=== PATIENT | female | born 1990 | race Caucasian/White ===

== ENCOUNTER 2016-07-31 15:37 | Inpatient (IN) | payer MEDICAID, OTHER ==
[~2016-07-31] VITALS: Ht 167.6 cm; Wt 122.0 kg
[2016-07-31 16:33] LABS: Basophils # (auto) 0.1 uL; Basophils % (auto) 0.4 % (0.0-2.0); Eosinophils # (auto) 0.7 uL; Eosinophils % (auto) 5.3 % (0.0-7.0); Hematocrit 42.6 % (36.0-46.0); Hemoglobin 13.8 g/dL (12.2-16.2); Lymphocytes # (auto) 4.4 uL; Lymphocytes % (auto) 34.8 % (10.0-50.0); Mean Corpuscular Hemoglobin 29.5 pg (28.0-32.0); Mean Corpuscular Hgb Conc. 32.5 g/dL (32.0-36.0); Mean Corpuscular Volume 90.6 fL (80.0-100.0); Mean Platelet Volume 8.4 fL (7.4-10.4); Monocytes # (auto) 0.6 uL; Neutrophils # (auto) 6.9 uL; Neutrophils % (auto) 54.5 % (37.0-80.0); Platelet Count (auto) 385 10^3/uL (140-450); Red Cell Distribution Width 14.9 % (11.6-16.0); White Blood Cell 12.7 10^3/uL (4.4-10.8)
[2016-07-31 16:40] LABS: Albumin 3.2 g/dL (3.4-5.0); BUN/Creatinine Ratio 13.3; Calcium 8.6 mg/dL (8.5-10.1); Potassium 3.9 mmol/L (3.5-5.1)
[2016-07-31 16:43] LABS: Bilirubin, Total 0.1 mg/dL (0.2-1.0); Total Protein 7.6 g/dL (6.4-8.2)
[2016-07-31] MEDS ORDERED: SODIUM CHLORIDE 0.9% 1,000 ML IVB ONE (17:17)
[2016-07-31] MEDS ORDERED: LORazepam 2MG/ML-1ML VIAL IV ONE ×3 (17:30→21:30)
[2016-07-31] MEDS ORDERED: LORazepam 2MG/ML-1ML VIAL ONE ×2 (19:23→21:08)
[2016-07-31] MEDS ORDERED: LEVETIRACETAM 500 MG/5ML INJ IV ONE (19:51)
[2016-07-31] MEDS ORDERED: LEVETIRACETAM INJ 1,000 MG in SODIUM CHL 0.9% 100 ML IV ONE (20:00)
[2016-07-31] MEDS ORDERED: HYDROmorphone HCL 2 MG/ML VL IV ONE (20:00)
[2016-07-31] MEDS ORDERED: ONDANSETRON HCL 4 MG/2 ML VIAL IV ONE (20:00)
[2016-07-31] MEDS ORDERED: diphenhdrAMINE HCL 50 MG/1 ML VL IV ONE (20:15)
[2016-07-31 20:45] LABS: Urine Bilirubin Negative (Negative); Urine Blood Negative /uL (Negative); Urine Color Yellow (Yellow); Urine Glucose Normal (Normal); Urine Ketone Negative (Negative); Urine Mucus FEW (None Seen); Urine Nitrite Negative (Negative); Urine RBC 2 /hpf (0 - 4); Urine Squamous Epithelial Cell FEW /hpf (<5); Urine Urobilinogen Normal (Negative)
[2016-07-31] MEDS ORDERED: ONDANSETRON HCL 4 MG/2 ML VIAL IV PRN (21:30)
[2016-07-31] MEDS ORDERED: cefTRIAXone 1GM/50ML D5W 50 ML IV ONE (21:30)
[2016-07-31] MEDS ORDERED: ACETAMINOPHEN 325 MG TAB PO PRN (21:30)
[2016-07-31] MEDS ORDERED: NITROGLYCERIN 0.4 MG SL TAB SL PRN (21:30)
[2016-07-31] MEDS ORDERED: HYDROcodone-ACET 5/325MG TAB PO PRN (21:30)
[2016-07-31] MEDS ORDERED: MORPHINE SULF INJ 2 MG/ML SYRINGE 1ML IV PRN (21:30)
[2016-07-31] MEDS ORDERED: PHENYTOIN IV DILANTIN 1,000 MG in SODIUM CHL 0.9% 250 ML IV ONE (21:45)
[2016-07-31 22:40] VITALS: BP 136/80
[2016-07-31] MEDS: LORazepam 2MG/ML-1ML VIAL IV PRN (22:59)
[2016-07-31] MEDS: SODIUM CHLORIDE 0.9% 1,000 ML IV SCH (23:09)
[2016-07-31] MEDS: MORPHINE SULF INJ 2 MG/ML SYRINGE 1ML IV PRN (23:10)
[2016-07-31] MEDS ORDERED: PHENYTOIN SODIUM 50 MG/ML 5ML INJ VIAL IV ONE (23:56)
[2016-08-01] MEDS: METOPROLOL TARTRATE 25 MG TAB PO SCH ×3 (00:10→22:00)
[2016-08-01] MEDS: FAMOTIDINE 20 MG TAB PO SCH ×3 (00:10→22:04)
[2016-08-01] MEDS ORDERED: LEVOFLOXACIN 500MG 100 ML IV ONE (00:30)
[2016-08-01] MEDS: LORazepam 2MG/ML-1ML VIAL IV PRN ×8 (04:43→23:28)
[2016-08-01] MEDS: MORPHINE SULF INJ 2 MG/ML SYRINGE 1ML IV PRN ×3 (04:46→12:48)
[2016-08-01 05:36] LABS: Basophils # (auto) 0.1 uL; Basophils % (auto) 0.5 % (0.0-2.0); Eosinophils # (auto) 0.5 uL; Lymphocytes # (auto) 3.5 uL; Lymphocytes % (auto) 20.3 % (10.0-50.0); Mean Corpuscular Hemoglobin 29.7 pg (28.0-32.0); Mean Corpuscular Hgb Conc. 32.4 g/dL (32.0-36.0); Mean Corpuscular Volume 91.6 fL (80.0-100.0); Mean Platelet Volume 8.1 fL (7.4-10.4); Monocytes # (auto) 0.7 uL; Monocytes % (auto) 3.9 % (0.0-12.0); Neutrophils # (auto) 12.6 uL; Neutrophils % (auto) 72.3 % (37.0-80.0); Platelet Count (auto) 343 10^3/uL (140-450); Red Cell Distribution Width 14.8 % (11.6-16.0); White Blood Cell 17.5 10^3/uL (4.4-10.8)
[2016-08-01 05:45] LABS: Albumin 2.9 g/dL (3.4-5.0); BUN/Creatinine Ratio 14.1; Bilirubin, Total 0.2 mg/dL (0.2-1.0); Calcium 8.3 mg/dL (8.5-10.1); Potassium 4.2 mmol/L (3.5-5.1)
[2016-08-01 05:55] VITALS: BP 128/73
[2016-08-01 09:00] VITALS: BP 137/89
[2016-08-01] MEDS ORDERED: cefTRIAXone 1GM/50ML D5W 50 ML IV SCH (09:00)
[2016-08-01] MEDS ORDERED: PHENYTOIN IV DILANTIN 300 MG in SODIUM CHL 0.9% 50 ML IV SCH (10:00)
[2016-08-01] MEDS: SODIUM CHLORIDE 0.9% 1,000 ML IV SCH ×2 (11:40→22:27)
[2016-08-01 12:49] VITALS: BP 124/72
[2016-08-01] MEDS ORDERED: LORazepam 2MG/ML-1ML VIAL IV STA (15:10)
[2016-08-01] MEDS ORDERED: KETOROLAC TROMETH 30 MG/ML 1ML VIAL IV PRN (16:15)
[2016-08-01] MEDS ORDERED: LORazepam 2MG/ML-1ML VIAL IV PRN ×2 (19:45)
[2016-08-01] MEDS ORDERED: LORazepam 2MG/ML-1ML VIAL ONE (20:38)
[2016-08-01] MEDS ORDERED: LORazepam 2MG/ML-1ML VIAL IV ONE (20:45)
[2016-08-01 22:00] VITALS: BP 131/60
[2016-08-01] MEDS ORDERED: LEVETIRACETAM 500 MG TAB PO SCH (22:00)
[2016-08-01] MEDS ORDERED: VALPROATE INJ 1,000 MG in SODIUM CHL 0.9% 100 ML IV SCH (22:00)
[2016-08-01] MEDS: LEVOFLOXACIN 500MG 100 ML IV SCH (22:04)
[2016-08-02] MEDS: MORPHINE SULF INJ 2 MG/ML SYRINGE 1ML IV PRN ×3 (03:26→23:52)
[2016-08-02] MEDS: LORazepam 2MG/ML-1ML VIAL IV PRN ×7 (04:42→21:16)
[2016-08-02 05:39] VITALS: BP 124/71
[2016-08-02] MEDS: ACCU-CHEK COMFORT CURVE STRIP VI SCH ×5 (06:09→23:58)
[2016-08-02] MEDS ORDERED: InsuLIN REG 1unit/0.01ml Soln (100units/ml) SC SCH (07:00)
[2016-08-02 08:15] VITALS: BP 113/66
[2016-08-02] MEDS: METOPROLOL TARTRATE 25 MG TAB PO SCH ×2 (08:31→21:30)
[2016-08-02] MEDS: FAMOTIDINE 20 MG TAB PO SCH ×2 (08:32→21:29)
[2016-08-02] MEDS: SODIUM CHLORIDE 0.9% 1,000 ML IV SCH ×2 (10:57→23:27)
[2016-08-02 11:16] VITALS: BP 148/75
[2016-08-02 17:00] VITALS: BP 123/66
[2016-08-02] MEDS: PROMETHAZINE HCL 25 MG/ML 1ML IV PRN ×2 (17:32→23:52)
[2016-08-02] MEDS: LEVOFLOXACIN 500MG 100 ML IV SCH (21:30)
[2016-08-02 22:00] VITALS: BP 145/80
[2016-08-03] MEDS: LORazepam 2MG/ML-1ML VIAL IV PRN ×4 (01:10→10:20)
[2016-08-03 05:30] VITALS: BP 118/75
[2016-08-03] MEDS: ACCU-CHEK COMFORT CURVE STRIP VI SCH (05:43)
[2016-08-03] MEDS: MORPHINE SULF INJ 2 MG/ML SYRINGE 1ML IV PRN (09:59)
[2016-08-03] MEDS: PROMETHAZINE HCL 25 MG/ML 1ML IV PRN (10:00)
[2016-08-03] MEDS ORDERED: lamoTRIgine 100 MG TAB PO SCH (10:00)
[2016-08-03] MEDS: FAMOTIDINE 20 MG TAB PO SCH (10:44)
[2016-08-03] MEDS: METOPROLOL TARTRATE 25 MG TAB PO SCH (10:45)
[2016-08-03 12:20] VITALS: BP 114/73
[2016-08-03 12:23] VITALS: BP 142/111
== END 2016-08-03 13:20 | disposition short-term general hospital (02) | DRG 53 ==
LOC: ER 15:42 → EDUNIT# 15:43 → TELE 15:43 → TELE-WESTW 22:55
PROVIDERS: ADMIT Internal Medicine; ATTEND Internal Medicine Pulmonary Disease
DX: G40.401 Other generalized epilepsy and epileptic syndromes, not intractable, with status epilepticus (principal); E44.1 Mild protein-calorie malnutrition; I10 Essential (primary) hypertension; N39.0 Urinary tract infection, site not specified; E66.01 Morbid (severe) obesity due to excess calories; E03.9 Hypothyroidism, unspecified; E11.9 Type 2 diabetes mellitus without complications; R32 Unspecified urinary incontinence; Z98.51 Tubal ligation status; Z82.0 Family history of epilepsy and other diseases of the nervous system; Z68.41 Body mass index [BMI] 40.0-44.9, adult; Z88.0 Allergy status to penicillin; Z91.040 Latex allergy status
CPT/HCPCS: 36415; 70450; 80053; 80185; 81001; 82542; 82962; 83735; 84146; 84702; 85025; 87086; 93005; 94761; 95819; 96365; 96375; 96376; J1885; J1956; J2405

== ENCOUNTER 2016-08-21 18:47 | Emergency (ER) | payer MEDICAID ==
[~2016-08-21] VITALS: Ht 165.1 cm; Wt 127.0 kg
[2016-08-21] MEDS ORDERED: methylPREDNISolone SOD SUCC 125 MG/2 ML VL IM ONE (21:45)
[2016-08-21 22:10] VITALS: BP 126/81
== END 2016-08-21 22:26 | disposition home or self-care (01) ==
LOC: ER 18:54
DX: J02.0 Streptococcal pharyngitis (principal); B95.5 Unspecified streptococcus as the cause of diseases classified elsewhere; E11.9 Type 2 diabetes mellitus without complications; I10 Essential (primary) hypertension; Z88.0 Allergy status to penicillin; Z88.1 Allergy status to other antibiotic agents; Z91.040 Latex allergy status
CPT/HCPCS: 96372; 99283; J2930

== ENCOUNTER 2017-05-18 14:55 | Emergency (ER) | payer MEDICAID ==
[~2017-05-18] VITALS: Ht 157.5 cm; Wt 158.8 kg
[2017-05-18] MEDS ORDERED: LORazepam 2MG/ML-1ML VIAL ONE (14:56)
[2017-05-18] MEDS ORDERED: SODIUM CHLORIDE 0.9% 1,000 ML IV ONE ×2 (15:19)
[2017-05-18 15:29] LABS: Basophils # (auto) 0.1 uL; Eosinophils # (auto) 0.6 uL; Eosinophils % (auto) 5.2 % (0.0-7.0); Hematocrit 41.4 % (36.0-46.0); Hemoglobin 13.9 g/dL (12.2-16.2); Lymphocytes # (auto) 4.1 uL; Mean Corpuscular Hemoglobin 30.6 pg (28.0-32.0); Mean Corpuscular Hgb Conc. 33.5 g/dL (32.0-36.0); Mean Corpuscular Volume 91.4 fL (80.0-100.0); Monocytes # (auto) 0.6 uL; Monocytes % (auto) 5.7 % (0.0-12.0); Neutrophils # (auto) 5.2 uL; Neutrophils % (auto) 49.1 % (37.0-80.0); Nucleated Red Blood Cells % 0.2 %; Platelet Count (auto) 287 10^3/uL (140-450); Red Blood Cells 4.53 10^6/uL (4.0-5.20); Red Cell Distribution Width 14.1 % (11.8-14.3); White Blood Cell 10.5 10^3/uL (4.4-10.8)
[2017-05-18] MEDS ORDERED: LORazepam 2MG/ML-1ML VIAL IV ONE (15:30)
[2017-05-18 15:43] LABS: INR 0.87 (0.9-1.15); Partial Thromboplastin Time 26.8 sec (22.64-33.71); Prothrombin Time 9.5 sec (9.37-12.3)
[2017-05-18 15:49] LABS: Albumin 3.1 g/dL (3.4-5.0); BUN/Creatinine Ratio 15.6; Bilirubin, Total 0.1 mg/dL (0.2-1.0); Calcium 8.3 mg/dL (8.5-10.1); Total Protein 7.6 g/dL (6.4-8.2)
[2017-05-18] MEDS ORDERED: SODIUM CHLORIDE 0.9% 1,000 ML IV SCH ×2 (16:16→22:00)
[2017-05-18] MEDS ORDERED: HYDROcodone-ACET 5/325MG TAB PO PRN (16:30)
[2017-05-18] MEDS ORDERED: MORPHINE SULFATE 10 MG/ML INJ 1ML SDV IV PRN ×2 (16:30)
[2017-05-18] MEDS ORDERED: LACTULOSE 20Gm/30ML SOLN PO PRN (16:30)
[2017-05-18] MEDS ORDERED: LORazepam 2MG/ML-1ML VIAL IV PRN (16:30)
[2017-05-18] MEDS ORDERED: HYDROcodone-ACET 5/325MG TAB PO ONE (16:30)
[2017-05-18] MEDS ORDERED: NITROGLYCERIN 0.4 MG SL TAB SL PRN (16:30)
[2017-05-18] MEDS ORDERED: PROMETHAZINE HCL 25 MG/ML 1ML IV PRN (16:30)
[2017-05-18] MEDS ORDERED: ACETAMINOPHEN 500 MG TAB PO PRN (16:30)
[2017-05-18] MEDS ORDERED: TEMAZEPAM 15 MG CAP PO PRN (16:30)
[2017-05-18] MEDS ORDERED: DEXTROSE (50%) 50ML SYRG IV PRN (16:30)
[2017-05-18 16:37] VITALS: BP 132/75
[2017-05-18 16:48] LABS: Valproic Acid (Depakene) < 3.0 ug/mL (50-100)
[2017-05-18 16:51] LABS: Phenytoin (Dilantin) 0.6 ug/mL (10-20)
[2017-05-18] MEDS ORDERED: PHENYTOIN SODIUM 100 MG CAP PO ONE (17:00)
[2017-05-18] MEDS ORDERED: InsuLIN REG 1unit/0.01ml Soln (100units/ml) SC SCH (17:00)
[2017-05-18] MEDS ORDERED: ACCU-CHEK COMFORT CURVE STRIP VI SCH (17:00)
[2017-05-18] MEDS ORDERED: LEVETIRACETAM INJ 1,000 MG in SODIUM CHL 0.9% 100 ML IV ONE (17:00)
[2017-05-18] MEDS ORDERED: HYDROmorphone HCL 2 MG/ML VL IV ONE ×2 (17:00→18:45)
[2017-05-18] MEDS ORDERED: ENOXAPARIN SOD 40 MG/0.4 ML SYRINGE SC ONE (17:00)
[2017-05-18] MEDS ORDERED: lamoTRIgine 100 MG TAB PO ONE (17:00)
[2017-05-18] MEDS ORDERED: ONDANSETRON HCL 4 MG/2 ML VIAL IV ONE (17:00)
[2017-05-18] MEDS: LEVETIRACETAM 500 MG/5ML ORAL SOLN UD GT ONE ×2 (17:05→18:03)
[2017-05-18] MEDS ORDERED: LORazepam 2MG/ML-1ML VIAL IM ONE (18:45)
[2017-05-18] MEDS ORDERED: lamoTRIgine 100 MG TAB PO SCH (22:00)
[2017-05-18] MEDS ORDERED: PHENYTOIN SODIUM 100 MG CAP PO SCH (22:00)
[2017-05-18] MEDS ORDERED: LEVETIRACETAM 500 MG/5ML ORAL SOLN UD GT SCH (22:00)
[2017-05-19] MEDS ORDERED: ENOXAPARIN SOD 40 MG/0.4 ML SYRINGE SC SCH (10:00)
== END 2017-05-18 19:29 | disposition home or self-care (01) ==
LOC: EDBD 14:55 → ER 14:55
DX: G40.909 Epilepsy, unspecified, not intractable, without status epilepticus (principal); R42 Dizziness and giddiness; E11.9 Type 2 diabetes mellitus without complications; I10 Essential (primary) hypertension; E07.9 Disorder of thyroid, unspecified; R41.82 Altered mental status, unspecified
CPT/HCPCS: 36415; 70450; 71010; 80053; 80164; 80185; 82542; 82962; 83036; 83883; 84484; 85025; 85610; 85652; 85730; 96361; 96365; 96372; 96375; 96376; 99285; J1170; J1650; J1953; J2060; J2405; J7030